=== PATIENT | male | born 1965 | race Caucasian/White ===

== ENCOUNTER → 2020-10-26 | Outpatient (CLI) | payer SELFPAY ==
[2020-10-26 18:44] LABS: RED BLOOD COUNT 4.78 M/UL (4.20-5.50); WHITE BLOOD COUNT 12.6 K/UL (4.5-11.0)
[2020-10-26 19:07] LABS: BUN/CREATININE RATIO 21 (0-10)
== END ==
LOC: LAB 18:14
PROVIDERS: Family Medicine
DX: K92.2 Gastrointestinal hemorrhage, unspecified (principal); R39.12 Poor urinary stream
CPT/HCPCS: 36415; 80053; 84153; 85025

== ENCOUNTER → 2020-11-05 | Outpatient (CLI) | payer SELFPAY ==
[2020-11-05 14:58] LABS: HEMOGLOBIN 15.7 gm/dl (14.0-17.5); RED BLOOD COUNT 5.01 M/UL (4.20-5.50); WHITE BLOOD COUNT 10.5 K/UL (4.5-11.0)
[2020-11-05 15:21] LABS: BUN/CREATININE RATIO 13 (0-10)
== END ==
LOC: LAB 13:32
PROVIDERS: Surgery
DX: K92.1 Melena (principal)
CPT/HCPCS: 36415; 71046; 80048; 85025; 93005